=== PATIENT | male | born 1945 | race Caucasian/White ===

== ENCOUNTER → 2020-07-16 | Outpatient (CLI) | payer OTHER ==
[~2020-07-16] VITALS: Ht 188 cm; Wt 102.1 kg
[~2020-07-16] MED LIST: ENOXAPARIN40 MG/0.1 SUBQ; TRAMADOL 50 MG50 MG PO; TRIAMTERENE-HC1 EAC2 PO; TYLENOL325 M1 PO; WARFARIN SODIUM5 MG PO
[2020-07-16 10:17] LABS: URINE BILIRUBIN NEGATIVE (Negative); URINE BLOOD NEGATIVE (Negative); URINE CLARITY CLEAR; URINE COLOR YELLOW; URINE GLUCOSE-RANDOM NEGATIVE (Negative); URINE KETONES NEGATIVE (Negative); URINE LEUKOCYTES-REFLEX NEGATIVE (Negative); URINE NITRITE-REFLEX NEGATIVE (Negative); URINE PROTEIN NEGATIVE (Negative); URINE UROBILINOGEN 0.2 E.U./dl (0.2-1.0)
[2020-07-16 10:54] LABS: HEMATOCRIT 48.2 % (42.0-52.0); MCH 32.3 pg (26.0-34.0); MCHC 33.2 g/dL (28.0-37.0); MCV 97.2 fL (80.0-100.0); MPV 9.1 fl. (7.2-11.1); RBC 4.96 mil/uL (4.50-6.00); WBC 6.4 thou/uL (4.0-11.0)
[2020-07-16 11:06] LABS: INR 2.7; PROTIME 26.6 Seconds (9.20-11.50)
[2020-07-16 11:16] LABS: ALBUMIN 3.7 g/dL (3.4-5.0); CALCIUM 9.4 mg/dL (8.5-10.1); CREATININE 1.2 mg/dL (0.6-1.3); POTASSIUM 4.6 mmol/L (3.5-5.1); TOTAL BILIRUBIN 0.7 mg/dL (<0.1-1.0); TOTAL PROTEIN 6.9 g/dL (6.4-8.2)
[2020-07-16 12:02] LABS: ABSOLUTE BASOPHILS 0.1 thou/uL (0.0-0.2); ABSOLUTE EOSINOPHILS 0.1 thou/uL (0.0-0.7); ABSOLUTE LYMPHOCYTES 1.5 thou/uL (0.8-5.3); ABSOLUTE MONOCYTES 0.8 thou/uL (0.0-1.2); ABSOLUTE NEUTROPHILS 3.6 thou/uL (1.6-8.1); BASOPHILS 0.9 %; EOSINOPHILS 1.6 %; HEMATOCRIT 47.6 % (42.0-52.0); HEMOGLOBIN 15.7 gm/dL (14.0-18.0); LYMPHOCYTES 25.2 %; MCH 32.1 pg (26.0-34.0); MCV 97.1 fL (80.0-100.0); MONOCYTES 12.8 %; MPV 9.2 fl. (7.2-11.1); NUCLEATED RBCS 0 /100WBC; PLATELET COUNT* 178 thou/uL (150-400); POLYS 59.5 %; WBC 6.1 thou/uL (4.0-11.0)
[2020-07-16 12:25] LABS: APTT 39.8 Seconds (25.0-31.3); INR 2.6; PROTIME 25.7 Seconds (9.20-11.50)
[2020-07-16 12:40] LABS: CALCIUM 8.8 mg/dL (8.5-10.1); CREATININE 1.3 mg/dL (0.6-1.3); POTASSIUM 4.6 mmol/L (3.5-5.1)
[2020-07-16 12:53] LABS: ALBUMIN 3.7 g/dL (3.4-5.0); CK-MB MASS 0.6 ng/mL (<0.5-3.6); MAGNESIUM 2.3 mg/dL (1.8-2.4); TOTAL BILIRUBIN 0.7 mg/dL (<0.1-1.0); TOTAL PROTEIN 6.6 g/dL (6.4-8.2)
[2020-07-16 13:16] VITALS: BP 143/84
--- NOTE | 2020-07-17 14:24 | EKG ---
[place] [address] ELECTROCARDIOGRAM REPORT Name: KEITH TOSCANO Room: [facility] M.R.#: [id number] Admission: 07/16/20 Attend Phys: FOR SivanKeyanaMatt REG U Discharge: Date of : 47 Date of Service: 07/16/20 1135 Report #: [id number] THIS REPORT FOR: //name// [facility] ED Test Date: 2020-07-16 Test Time: 11:35:32 Pat Name: KEITH TOSCANO Department: Room: Gender: M Financial Compliance Examiner: ЕЛЕНА : 1945 Requested By: Jaswant Turner Order Number: [id number] MD: Jez Nguyen Measurements Intervals [place] Rate: 70 P: IN: QRS: -16 QRSD: 92 T: QT: 425 QTc: 459 Interpretive Statements Atrial fibrillation Abnormal R-wave progression, early transition LVH with secondary repolarization abnormality Baseline wander in lead(s) V4,V6 Compared to ECG 07/16/2020 11:00:03 Left ventricular hypertrophy now present Early repolarization now present T-wave abnormality no longer present Electronically Signed On 07-17-2020 14:24:29 SCRAP CRANE OPERATOR by Jez Nguyen [email or web address] <ELECTRONICALLY SIGNED> By: Jez Nguyen MD, [facility] 07/17/20 1424 1135 1135 Jez Nguyen MD, [facility] /EPI
--- NOTE | 2020-07-19 16:33 | CON ---
[facility] [address] [place] [address] CONSULTATION Name: KEITH TOSCANO Room: REG CLI M.R.#: [id number] Admission: 07/16/20 Attend Phys: FOR E.D. REG USE Discharge: Date of : 47 Report #: [id number] THIS REPORT FOR: cc: Timothy Blanton MD, Jason MD ~ Mazin Boyle MD [facility] CARDIOLOGY CONSULTATION INDICATION: New onset atrial fibrillation. HISTORY OF PRESENT ILLNESS: The patient is a very pleasant 74-year-old gentleman who was at the hospital today for preoperative evaluation for upcoming hip surgery. Preoperative EKG showed atrial fibrillation with a controlled ventricular response rate. There were no pathologic Q-waves or other acute changes. The patient was not aware that he was in atrial fibrillation. The ventricular response rate was relatively slow. The patient denies any lightheadedness, dizziness, syncope, shortness of breath or chest pain. His only significant cardiac risk factor is borderline hypertension. There was no family history of premature atherosclerotic coronary artery disease. He denies any history of significant dyslipidemia or diabetes. He quit smoking over 25 years ago. FAMILY HISTORY: Noncontributory. He is presently asymptomatic from a cardiac standpoint. PAST MEDICAL HISTORY: 1. Borderline hypertension. 2. Dupuytren's contracture release on the right hand. 3. Prostate cancer, status post robotic removal. 4. Recurrent DVT left lower extremity, on warfarin chronically. 5. Previous colonoscopy. 6. Moeller's palsy. HOME MEDICATIONS: Warfarin 7.5 mg daily, tramadol 50 mg every 6 hours p.r.n., Maxzide 25 one tablet daily, Tylenol p.r.n. ALLERGIES: None documented. SOCIAL HISTORY: The patient drinks alcohol occasionally. He quit smoking over 25 years ago. FAMILY HISTORY: Noncontributory. REVIEW OF SYSTEMS: A 14-point review of systems is positive [place] [address] CONSULTATION Name: DORCASKEITH Room: [facility]#: [id number] Admission: 07/16/20 Attend Phys: FOR E.D. REG USE Discharge: Date of : 47 Report #: [id number] dyspnea on exertion. Otherwise, unremarkable. PHYSICAL EXAMINATION: VITAL SIGNS: Stable. Blood pressure 151/81, pulse is in the 80s and irregular. GENERAL: This is a pleasant gentleman in no distress. Mood and affect appropriate. HEENT: Extraocular muscles intact. Mucous membranes are moist. NECK: Shows no jugular venous distention. There are no carotid bruits. CHEST: Reveals diminished breath sounds without wheezes or rales. CARDIOVASCULAR: Reveals an irregularly irregular rhythm that is rate controlled without gallop or murmur. BACK: Shows some kyphosis. ABDOMEN: Reveals normal bowel sounds. The abdomen is soft and nontender. EXTREMITIES: Shows no edema. Peripheral pulses are 2+ and easily palpable. SKIN: Dry. LABORATORY DATA: EKG shows atrial fibrillation with a controlled ventricular response rate. There were no acute ST or T-wave abnormalities noted. Labs are reviewed. Sodium 139, potassium 4.6, chloride 101, bicarbonate 31, BUN 16, creatinine 1.3, serum glucose 97. LFTs are within normal limits. INR is 2.6. CBC is within normal limits. Chest x-ray shows no acute abnormality. IMPRESSION AND RECOMMENDATIONS: 1. Atrial fibrillation. Duration unknown. The patient's rate is adequately controlled on no medications at all. He is chronically anticoagulated on warfarin for recurrent deep venous thrombosis. At this point, I would continue rate control strategy as he seems to be asymptomatic. I would recommend an echocardiogram in the future to evaluate underlying cardiac structure and function. Plan to follow up with the patient in 4-6 weeks in the office. 2. Preoperative evaluation. The patient is at no significant prohibitive risk from a cardiovascular standpoint to proceed with left hip surgery. The patient has arranged to discontinue warfarin and bridge with 10 mg Xarelto prior to surgery. He will resume warfarin as soon postop as feasible. No further cardiac testing necessary prior to surgery. 3. Hypertension. Blood pressure appears adequately controlled on Maxzide 25 one tablet daily. From a cardiac standpoint, the patient appears stable [place] [address] CONSULTATION Name: KEITH TOSCANO Room: [facility] Peña#: [id number] Admission: 07/16/20 Attend Phys: FOR Dereck. REG USE Discharge: Date of : 47 Report #: [id number] Emergency Room. Okay to proceed with left hip surgery as outlined above. We will plan to see him back in the office with an echocardiogram in 4-6 weeks. <ELECTRONICALLY SIGNED> By: Mazin Boyle MD, FACC 07/19/20 [address] [facility] Boyle MD, FACC /nt
== END ==
LOC: M.LAB 10:25 → M.ERS 10:25
PROVIDERS: Family Medicine; Orthopaedic Surgery
DX: R94.31 Abnormal electrocardiogram [ECG] [EKG] (principal); I48.91 Unspecified atrial fibrillation; R07.9 Chest pain, unspecified; R00.9 Unspecified abnormalities of heart beat; I49.3 Ventricular premature depolarization; I51.7 Cardiomegaly; Z20.822 Contact with and (suspected) exposure to COVID-19

== ENCOUNTER 2020-07-23 05:37 | Inpatient (IN) | payer OTHER ==
--- NOTE | 2020-07-16 12:55 | EKG ---
[place] [address] ELECTROCARDIOGRAM REPORT Name: KEITH TOSCANO Room: PRE IN ..#: [id number] Admission: Attend Phys: Herminio Reddy, Discharge: Date of : 47 Date of Service: 07/16/20 1100 Report #: [id number] THIS REPORT FOR: //name// [facility] Test Date: 2020-07-16 Test Time: 11:00:03 Pat Name: KEITH TOSCANO Department: Room: Gender: M Foreclosure Clerk: : 1945 Requested By: Herminio Reddy Order Number: [id number] Reading MD: Mazin Boyle Measurements Intervals [place] Rate: 64 P: IA: QRS: -8 QRSD: 95 T: -24 QT: 433 QTc: 447 Interpretive Statements Atrial fibrillation Abnormal R-wave progression, early transition Borderline T abnormalities, inferior leads No previous ECG available for comparison Electronically Signed On 07-16-2020 12:55:48 INFO SPECIALIST by Mazin Boyle [email or web address] <ELECTRONICALLY SIGNED> By: Mazin Boyle MD, [facility] 07/16/20 1255 1100 99 Mazin Boyle MD, FACC /EPI
[~2020-07-23] VITALS: Ht 188 cm; Wt 102.1 kg
[~2020-07-23 05:37] MED LIST changes: -ENOXAPARIN40 MG/0.1 SUBQ
[2020-07-23 09:13] LABS: PROTIME 10.6 Seconds (9.20-11.50)
[2020-07-23 09:50] VITALS: BP 140/78
[2020-07-23 16:00] VITALS: BP 101/66
--- NOTE | 2020-07-23 16:46 | NUR ---
PT ADMITTED POST OP HIP SURGERY. PT ORIENTED TO ROOM. PT EDUCATED ON USING CALL LIGHT WHEN NEEDING ASSISTANCE AND WHEN PAIN INCREASES TO CALL FOR PAIN MEDS. FALL RISK PRECAUTIONS IN PLACE.
--- NOTE | 2020-07-23 16:50 | NUR ---
PT REMAINED ALERT AND ORIENTED AND DROWSY DURING SHIFT. PT AT BEDSIDE. PT VERY CONCERNED OVER RISK PF DVT, PT EDUCATED ON PLAN WITH [facility] AND THE DATE AND TIME TO START ORDERED POST OP. FALL RISK PRECAUTIONS IN PLACE. HOURLY ROUNDING COMPLETED.
[2020-07-23 20:44] VITALS: BP 137/80
[2020-07-24] VITALS (10 sets, daily range): BP systolic 112–137; BP diastolic 69–84
[2020-07-24 04:33] LABS: HEMOGLOBIN 11.5 gm/dL (14.0-18.0)
[2020-07-24 04:54] LABS: INR 1.1; PROTIME 11.9 Seconds (9.20-11.50)
--- NOTE | 2020-07-24 11:25 | NUR ---
Pt is A&O. Resides at home with . Independent. No DME. No hx of HH or SNF. Pt admitted for elective left hip djd, plan dc to home today with [facility], CM to fax referral and dc orders once available. Therapies to see.
[2020-07-24] MEDS ORDERED: ENOXAPARIN40 MG/0.1 SUBQ (11:31)
--- NOTE | 2020-07-24 12:08 | NUR ---
this nurse agrees with assessment by bob floyd
--- NOTE | 2020-07-24 16:43 | NUR ---
PT ALERT AND ORIENTED X 4. TAKEN OUT VIA WHEELCHAIR AND NURSING STAFF. D/C INSTRUCTIONS EXPLAINED. PT ON RA. STATES UNDERSTADNING TO INSTRUCTIONS. WITH TO TAKE HIM HOME. IV TAKEN OUT WITH CATHETER INTACT.
--- NOTE | 2020-07-25 12:14 | OP ---
[facility] [address] [place] [address] OPERATIVE REPORT Name: KEITH TOSCANO Room: [address] M.R.#: [id number] Admission: 07/23/20 Attend Phys: Keyana Aguilar Discharge: 07/24/20 Date of : 47 Report #: [id number] THIS REPORT FOR: cc: Timothy Blanton MD, Jason MD ~ Herminio Reddy II, DO DATE OF SERVICE: 07/23/2020 PREOPERATIVE DIAGNOSIS: Left hip osteoarthritis. POSTOPERATIVE DIAGNOSIS: Left hip osteoarthritis. PROCEDURE: Left total hip arthroplasty. SURGEON: Herminio Reddy II, DO. CUSTOM BOOKBINDER: MANJULA Soares. ANESTHESIA: General endotracheal. ESTIMATED BLOOD LOSS: 200 mL. ANTIBIOTICS: Ancef preoperatively. DRAINS: Medium Hemovac. COMPLICATIONS: None. CONDITION OF THE PATIENT: Stable to recovery room. IMPLANTS: Listed in operative record and progress note. BRIEF HISTORY: The patient was seen in the preoperative area. Preoperative H and P was performed. Site was marked, questions were answered. Risks and benefits were discussed with the patient in detail about surgery. The patient wished to proceed, assuming all risks. DESCRIPTION OF PROCEDURE: The patient was taken to the operative suite and placed supine on the operative table and given appropriate anesthesia. The patient's operative hip was placed in the Monroe table leg holland and sterilely prepped and draped in the supine position. Surgery began by longitudinal incision over the anterior portion of the hip. This was carried down to the subcutaneous tissue. A small isidra was made in the tensor fascia and it was then split along its fibers and retracted laterally. An H capsulotomy was then performed and careful hemostasis was obtained with electrocautery and [facility] [address] [place] [address] OPERATIVE REPORT Name: KEITH TOSCANO Room: [address] M.R.#: [id number] Admission: 07/23/20 Attend Phys: Keyana Aguilar Discharge: 07/24/20 Date of : 47 Report #: [id number] Aquamantys. The head and neck cutting alignment guide was then checked with fluoroscopic guidance. Appropriate cut was made to the head and neck and this was then removed. Attention was turned to the acetabulum. Excess labrum was removed. It was then reamed in sequential fashion up to appropriate size. This showed excellent bleeding bone and excellent position on fluoroscopic guidance. The acetabular cup was then malleted into position and secured with 2 cancellous screws. Metal liner was then applied. The patient's leg was then rotated and extended in the Monroe table to expose the femur. It was then broached in sequential fashion up to appropriate size. The appropriate neck was then trialed with appropriate head length and shown to have excellent fit and fill and excellent stability of the hip throughout all range of motion. These trials were removed. The final stem was then malleted into position and the final head and neck was then malleted into position. It was reduced in appropriate fashion, checked with C-arm for appropriate leg length and showed to have excellent leg length throughout the exam without evidence of dislocation upon range of motion and shuck testing. Wound was then copiously irrigated. Hemostasis was maintained with electrocautery and Aquamantys. Pain cocktail was injected. The H capsulotomy was then closed with 1 Vicryl in gxvast-[id number]-ubdzn fashion. Tensor fascia was closed with 1 Vicryl in running fashion. Skin was closed with 2-0 Vicryl and running 3-0 Monocryl. Dermabond and sterile dressing applied. The patient transported to recovery room in stable condition. Counts were correct throughout the procedure. <ELECTRONICALLY SIGNED> By: Herminio Reddy II, DO 07/25/20 1214 [id number] Reddy II, DO /nt
== END 2020-07-24 16:45 | disposition home health service (06) | DRG 470 ==
LOC: M.2W → M.PRE 08:16 → M.2W 08:18 → M.TBA 08:33 → M.3W 08:33 → M.2W 09:04 → M.3W 16:04
PROVIDERS: Internal Medicine; Orthopaedic Surgery; ADMIT Internal Medicine; ATTEND Internal Medicine
PROC: 0SRB03Z Replacement of Left Hip Joint with Ceramic Synthetic Substitute, Open Approach (ICD-10-PCS; principal; 2020-07-23)
PROC: 3E0T3BZ Introduction of Anesthetic Agent into Peripheral Nerves and Plexi, Percutaneous Approach (ICD-10-PCS; principal; 2020-07-23)
DX: M16.12 Unilateral primary osteoarthritis, left hip (principal); M72.0 Palmar fascial fibromatosis [Dupuytren]; I10 Essential (primary) hypertension; Z79.899 Other long term (current) drug therapy; Z85.46 Personal history of malignant neoplasm of prostate; Z86.718 Personal history of other venous thrombosis and embolism; Z87.891 Personal history of nicotine dependence